=== PATIENT | female | born 1975 | race Hispanic/Latino ===

== ENCOUNTER 2018-09-28 11:15 | Day surgery (SDC) | payer BC ==
[2018-09-28] MEDS ORDERED: WATER FOR IRRIG STERILE IR ONE (12:17)
[2018-09-28] MEDS ORDERED: WATER FOR IRRIG STERILE ONE (12:18)
[2018-09-28] MEDS ORDERED: NACL 0.9% 1000 ML 1,000 ML IV SCH (13:00)
[2018-09-28] MEDS ORDERED: DIPRIVAN 10 MG/ML IV ONE ×4 (13:12→13:45)
--- NOTE | 2018-09-28 14:07 | Procedure Note ---
Date of procedure: 09/28/18 Pre-op diagnosis: Dysphagia/Pill Esophagitis/ Colon Polyp Screening/F/H/O Colon Cancer (at a Post-op diagnosis: other (Mild,Esophageal Stenosis (s/p Esophageal, Balloon Dilation)/R/O Eosinophilic Esophagitis/R/O Celiac disease/ Antral Erosion/Gastritis/ Moderate, Left Colon diverticular disease/ Minor,Internal Hemorrhoid/ Moderate, External Hemorrhoid/ No colon Polyps noted) Procedure: EGD with Biopsy and Balloon Dilation/ Colonoscopy Anesthesia: MAC Surgeon: MEL CLINE Estimated blood loss: minimal Pathology: list Specimen disposition: to lab Condition: stable Disposition: same day (Treat with PPI and encourage fiber intake and follow up in 1 to 2 weeks ([phone]).)
--- NOTE | 2018-09-28 14:13 | Operative Report ---
PROCEDURE: EGD with biopsy and balloon dilation. INDICATIONS: This is a 43-year-old white female, who has had some pill esophagitis following use of clindamycin, also on occasion has dysphagia. EGD was done to assess for the problem. DESCRIPTION OF PROCEDURE: Procedure was done after getting informed consent with MAC anesthesia. Instrument was passed to the hypopharynx into the esophagus. Any evidence of pill esophagitis appears to have healed up. There was some slight esophageal stenosis and the esophagus was dilated at the end of the procedure with the 20 mm balloon dilation. There was an esophageal ring present as well. The stomach showed antral erosion and gastritis. Biopsy was done from the gastric body, the gastric antrum and the angularis were to rule out for H. pylori and atrophic gastritis. The pylorus is patent. The duodenum in the first and second portion appeared normal. Biopsy was done from the second part to rule out for possible celiac disease. There was minimal bleeding from the biopsy sites. No complications associated with the procedure. ASSESSMENT: Dysphagia, mild esophageal stenosis, status post balloon dilation, rule out eosinophilic esophagitis, rule out celiac disease, antral gastric erosion gastritis. PLAN: To treat the patient with PPI, have the patient avoid aspirin and aspirin-related products for the next few days and follow up in the office in 1-2 weeks' time. A colonoscopy will also be done as part of colon polyp screening since the patient has a family history of colon cancer with family members having colon cancer at a relatively young age. RNMatilde was in the room throughout the entirety of the procedure. JOB# [id number] ABIEL/THUY
--- NOTE | 2018-09-28 14:19 | Operative Report ---
PROCEDURE: Colonoscopy. INDICATIONS: This is a 43-year-old white female who had an EGD done because of history of dysphagia and possible pill esophagitis which had happened after she had tried to swallow some clindamycin. EGD showed antral erosion gastritis with evidence of pill esophagitis appears to have healed. Biopsy was done to rule out for eosinophilic esophagitis and celiac disease since the patient also has a family history of colon cancer with family members having colon cancer at a relatively young age. Colonoscopy was done for further assessment for possible colon polyp screening. DESCRIPTION OF PROCEDURE: Procedure was done after getting informed consent with MAC anesthesia. Instrument was passed through the rectum and the patient had a redundant colon and it was passed with some degree of difficulty to the cecum, which was identified with ileocecal valve. Visualization was slightly poor, at the cecum, there was a large pool of fluid, which was suctioned. The cecum, ascending colon, transverse colon showed normal mucosa. Moderate diverticular disease was noted in the left colon and the rectum showed minor internal hemorrhoids on the retroverted view and moderate external hemorrhoid. No biopsies were done in the colon during the colonoscopy and there was no bleeding associated with the colonoscopy. ASSESSMENT: Colon polyp screening, family history of colon cancer. No colon polyps noted. Moderate left colon diverticular disease, minor internal hemorrhoid and external hemorrhoids. Plan is to encourage the patient to take fiber supplements, treat the patient with [id number] antihemorrhoidal medication. Treat the patient with PPI. I have encouraged the patient to take fiber supplements and avoid aspirin and aspirin-related products for the next few days. There is no bleeding or complications associated with the colonoscopy and SONNY Flores was in the room throughout the entirety of the procedure. The patient will be asked to follow up in the office in 1-2 weeks' time. JOB# [id number] ABIEL/THUY
[2018-09-28 14:21] VITALS: BP 100/63
--- NOTE | 2018-09-28 14:39 | Anesthesia Consultation ---
Anesthesia Consult and Med Hx Date of service: 09/28/18 - Airway Anesthetic Teeth Evaluation: Good ROM Head & Neck: Adequate Mental/Hyoid Distance: Adequate Mallampati Class: Class II Intubation Access Assessment: Probably Good - Pulmonary Exam CTA: Yes - Cardiac Exam Cardiac Exam: RRR - Pre-Operative Health Status ASA Pre-Surgery Classification: ASA2 Proposed Anesthetic Plan: MAC - Pre-Anesthesia Comment Pre-Anesthesia Comments: PONV, controlled GERD, migraines - Gastrointestinal Hx Gastroesophageal Reflux Disease: Yes
--- NOTE | 2018-09-28 14:40 | Anesthesia Day of Surgery ---
Anesthesia Day of Surgery - Day of Surgery Patient Examined: Yes Patient H&P Reviewed: Yes Patient is NPO: Yes
== END 2018-09-28 11:16 | disposition home or self-care (01) ==
LOC: GIO 11:15
DX: Z12.11 Encounter for screening for malignant neoplasm of colon (principal); K22.2 Esophageal obstruction; K21.0 Gastro-esophageal reflux disease with esophagitis; K57.30 Diverticulosis of large intestine without perforation or abscess without bleeding; K64.8 Other hemorrhoids; K29.50 Unspecified chronic gastritis without bleeding; Z79.899 Other long term (current) drug therapy; Z88.2 Allergy status to sulfonamides; Z98.891 History of uterine scar from previous surgery; Z98.890 Other specified postprocedural states; Z80.0 Family history of malignant neoplasm of digestive organs
CPT/HCPCS: 43239; 43249; 45378; 81025; 88305; 88342; C1726; J2704; J7030